=== PATIENT | male | born 1980 | race Hispanic/Latino ===

== ENCOUNTER 2022-01-20 09:48 | Inpatient (IN) | payer OTHER ==
[2022-01-20 10:13] LABS: Absolute Lymphocytes (CBC) 2.5 K/uL (0.7-4.9); Hematocrit 45.4 % (39.6-49.0); Lymphocytes % 20.3 % (15.3-44.8); MPV 8.8 fL (7.6-11.3); RBC Red Blood Cell Count 5.29 M/uL (4.33-5.43)
[2022-01-20 10:14] LABS: Protime INR 0.94
[2022-01-20] MEDS ORDERED: FENTANYL CITR 100 MCG/2 ML ONE ×2 (10:19→11:50)
[2022-01-20] MEDS ORDERED: ONDANSETRON 4 MG/2 ML VIAL ONE (10:20)
[2022-01-20 10:50] LABS: ALT/SGPT 49 U/L (12-78); AST/SGOT 43 U/L (15-37); Albumin 3.6 g/dL (3.4-5.0); Alkaline Phosphatase 69 U/L (45-117); BUN Blood Urea Nitrogen 10 mg/dL (7-18); Bicarbonate 22 mmol/L (21-32); Bilirubin Direct 0.1 mg/dL (0-0.2); Bilirubin Total 0.5 mg/dL (0.2-1.0); Glomerular Filtration Rate 112 ml/min (=/>90); Glucose Level 131 mg/dL (74-106); Potassium 3.6 mmol/L (3.5-5.1); Protein, Total 7.6 g/dL (6.4-8.2); Sodium Level 137 mmol/L (136-145)
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
[2022-01-20 11:51] LABS: Urine Blood Trace-intact (Negative); Urine Glucose Negative (Negative); Urine Protein Negative (Negative); Urine pH 5.5 (5.0-7.0)
[2022-01-20 12:10] LABS: Barbiturates NEGATIVE (NEGATIVE); Benzodiazepines NEGATIVE (NEGATIVE); Cocaine NEGATIVE (NEGATIVE); METHAMPHETAM NEGATIVE (NEGATIVE); Methadone NEGATIVE (NEGATIVE); Opiates NEGATIVE (NEGATIVE); Phencyclidine NEGATIVE (NEGATIVE); THC Cannibis NEGATIVE (NEGATIVE)
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
[2022-01-20] MEDS ORDERED: ONDANSETRON 4 MG (ODT) TAB PO PRN (13:33)
[2022-01-20 15:15] VITALS: BMI 29.0
[2022-01-20] MEDS: NA CHLORIDE 0.9% 1,000 ML IV SCH (21:08)
[2022-01-20] MEDS: HYDROCODONE/APAP 5/325 MG TAB PO PRN (21:14)
[2022-01-20 23:43] VITALS: O2SAT 96
[2022-01-21 04:09] LABS: Absolute Lymphocytes (CBC) 1.5 K/uL (0.7-4.9); Hematocrit 41.1 % (39.6-49.0); Lymphocytes % 16.7 % (15.3-44.8); MPV 8.8 fL (7.6-11.3); RBC Red Blood Cell Count 4.83 M/uL (4.33-5.43)
[2022-01-21] MEDS: HYDROCODONE/APAP 5/325 MG TAB PO PRN ×2 (07:23→15:17)
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
[2022-01-21] MEDS: NA CHLORIDE 0.9% 1,000 ML IV SCH (10:00)
--- NOTE | 2022-01-21 12:35 | EKG ---
Test Date: 2022-01-20 Test Time: 09:51:32 Occupational Therapy Supervisor: ALP MEASUREMENT RESULTS: Intervals: Rate: 89 NJ: 144 QRSD: 92 QT: 374 QTc: 455 [place]: P: 77 NJ: 144 QRS: 44 T: 53 INTERPRETIVE STATEMENTS: Normal sinus rhythm Normal ECG No previous ECG available for comparison Electronically Signed On 01-21-22 12:31:50 CDT by Samuel Carroll
[2022-01-21 13:08] VITALS: BP 118/73; TEMP 97.5
== END 2022-01-21 17:28 | disposition home or self-care (01) | DRG 566 ==
LOC: ER 09:48 → ERHOLD 13:34 → 2ND 18:39 → OBSVTOIN 21:05
PROVIDERS: ADMIT Surgery; ATTEND Surgery
DX: S22.21XA Fracture of manubrium, initial encounter for closed fracture (principal); S70.02XA Contusion of left hip, initial encounter; V44.5XXA Car driver injured in collision with heavy transport vehicle or bus in traffic accident, initial encounter; Y92.410 Unspecified street and highway as the place of occurrence of the external cause; Z20.822 Contact with and (suspected) exposure to COVID-19
CPT/HCPCS: 36415; 70450; 71260; 72125; 74177; 80048; 80061; 80076; 80307; 80320; 80329; 81003; 84484; 85025; 85610; 85730; 86850; 86900; 86901; 93005; 94010; 96374; 96375; 97116; 97161; 99285; G0378; J2405; J3010; J7030; Q9967; U0003